=== PATIENT | female | born 1990 | race Hispanic/Latino ===

== ENCOUNTER 2021-05-12 07:34 | Day surgery (SDC) | payer BC ==
[2021-05-12 08:22] LABS: Absolute Lymphocytes (CBC) 2.2 K/uL (0.7-4.9); Hematocrit 34.5 % (36.0-45.0); Lymphocytes % 35.5 % (15.3-44.8); MPV 8.7 fL (7.6-11.3); RBC Red Blood Cell Count 4.99 M/uL (3.86-4.86)
[2021-05-12 08:26] LABS: Specific Gravity 1.025 (1.005-1.030)
[2021-05-12 08:41] LABS: ALT/SGPT 32 U/L (12-78); AST/SGOT 14 U/L (15-37); Alkaline Phosphatase 97 U/L (45-117); Amylase 59 U/L (25-115); BUN Blood Urea Nitrogen 13 mg/dL (7-18); Bicarbonate 26 mmol/L (21-32); Bilirubin Direct < 0.1 mg/dL (0-0.2); Bilirubin Total 0.4 mg/dL (0.2-1.0); Glucose Level 105 mg/dL (74-106); Lipase 107 U/L (73-393); Potassium 3.9 mmol/L (3.5-5.1); Protein, Total 8.1 g/dL (6.4-8.2); Sodium Level 142 mmol/L (136-145)
[2021-05-12] MEDS ORDERED: Ringers Lactate 1,000 ML IV ONE (08:51)
[2021-05-12] MEDS ORDERED: CEFAZOLIN/NS 1gm 1 GM/50 ML BAG ONE (08:53)
[2021-05-12] MEDS ORDERED: LIDOCAINE 1% MPF 5 ML VIAL ONE (10:48)
[2021-05-12] MEDS ORDERED: propofoL 200 MG/20 ML VIAL IV ONE (10:48)
[2021-05-12] MEDS ORDERED: FENTANYL CITR 100 MCG/2 ML ONE ×2 (10:48→11:41)
[2021-05-12] MEDS ORDERED: MIDAZOLAM HCL 2 MG/2 ML INJ ONE (10:48)
[2021-05-12] MEDS ORDERED: ROCURONIUM 50 MG/5 ML VIAL IV ONE (10:48)
--- NOTE | 2021-05-12 11:28 | P.BOP ---
Preoperative diagnosis: symptomatic cholelithiasis, acute cholecystitis, RUQ abd pain Postoperative diagnosis: same Primary procedure: Laparoscopic cholecystectomy Origination Specialist: Evelyn Rosales) Estimated blood loss: <10cc Specimen: gb Findings: as above Anesthesia: General Complications: None Transferred to: Recovery Room Condition: Good
[2021-05-12] MEDS ORDERED: dexAMETHasone 10 MG/ML VIAL ONE (11:30)
[2021-05-12] MEDS ORDERED: GLYCOPYRROLATE 0.2 MG/ML SYR ONE (11:30)
[2021-05-12] MEDS ORDERED: KETOROLAC 30 MG/ML INJ ONE (11:31)
[2021-05-12] MEDS ORDERED: NEOSTIGMINE 1 MG/ML -5 ML ONE (11:41)
[2021-05-12] MEDS ORDERED: ONDANSETRON 4 MG/2 ML VIAL ONE ×2 (11:41→12:20)
[2021-05-12 11:49] VITALS: O2SAT 100
[2021-05-12] MEDS ORDERED: Mastisol Adhesive Liq ONE (11:49)
--- NOTE | 2021-05-12 12:12 | OP ---
Date of Procedure: 05/12/2021 Surgeon: Roberto Smith MD Oven Builder: ANANT Pathak. Preoperative Diagnoses: Symptomatic cholelithiasis, acute cholecystitis, right upper quadrant abdomi nal pain. Postoperative Diagnoses: Symptomatic cholelithiasis, acute cholecystitis, right upper quadrant abdom inal pain. Procedure: Laparoscopic cholecystectomy. Estimated Blood Loss: Less than 10 mL. Specimen: Gallbladder. Finding: As above. Anesthesia: General plus local. Complications: None. Indication: This is the case of a 30-year-old patient, who comes to us with above diagnosis. Fully explained the benefits, alternatives, and risks of laparoscopic possible open cholecystectomy, which include, but not limited to infection, bleeding, damage to adjacent structures, anesthesia complicati on, choledocholithiasis, bile leak, pancreatitis, MT, and even . She also understands this may not relieve any symptoms. She might need more than one surgical intervention. She understood, min d a consent. Procedure In Detail: The patient was brought to the operating room, placed in supine position. Anes thesia was done without complication. Abdominal area was prepped and draped in usual sterile fashion . Marcaine 0.5% was injected for local anesthetic followed by sharp incision of the skin in the infr aumbilical region. Incision was carried down to fascia, which was opened under direct vision. Perit oneum was encountered, opened under direct vision. Vicryl #1 placed inside the fascia. Jose Miguel troca r was carefully introduced. Pneumoperitoneum was obtained. I placed 3 more trocars under direct vis ualization in the right upper quadrant, 5 mm each one of them. This allowed me to put a grasper in t he fundus of the gallbladder, another grasper in the infundibulum retracting the gallbladder in the i nferolateral fashion, exposing the triangle of Calot, and obtaining critical view. Cystic duct and c ystic artery were clearly isolated, freed circumferentially and a connection between those and the ga llbladder were clearly identified. I proceeded to ligate those by using at least 3 clips, proximal 1 clip distal, ligation in middle. Same was done with the cystic artery. No bile leak. No bleeding. The gallbladder was removed from liver using Bovie cauterizer and removed from abdominal cavity usi ng EndoCatch through the umbilical incision. The area was inspected once again. Clips were intact. No bile leak. No bleeding. At that moment, I proceeded to remove the trocars under direct vision. Deflated the pneumoperitoneum. Closed the fascia with #1 Vicryl. Irrigated the subcutaneous tissue , closed that with 3-0 chromic and skin in subcuticular fashion with 3-0 chromic and Steri-Strips on top. Sponge count and instrument counts correct. The patient tolerated the procedure well. The [facility] ient was sent to recovery in stable condition. YOAV/KEVIN Voice ID: [id number] Report ID: [id number]
--- NOTE | 2021-05-12 12:12 | DS ---
Diagnoses: Symptomatic cholelithiasis, acute cholecystitis, right upper quadrant abdominal pain. Procedure: Laparoscopic cholecystectomy. Disposition: Home. Activity: As tolerated. No heavy lifting. Plan: Follow up in my office in 1 week. Call for appointment at [phone]. Keep area dry for 48 greta rs, then may shower. Keep Steri-Strips intact. Medications: Include Tylenol No.3 q.4 hours p.r.n. pain, Zofran 4 q.6 hours p.r.n. nausea, and Bactr im DS p.o. b.i.d. YOAV/KEVIN Voice ID: [id number] Report ID: [id number]
[2021-05-12] MEDS ORDERED: HYDROMORPHONE HCL 1 MG/ML INJ ONE (12:20)
[2021-05-12 13:18] LABS: Anisocytosis SLIGHT; Blood Morphology Comment NOTED (NOT SEEN); Hypochromasia 1+; Platelet Estimate ADEQ; White Blood Cell Scan OK (OK)
[2021-05-12] MEDS ORDERED: HYDROCODONE/APAP 7.5/325 MG TAB ONE (13:18)
[2021-05-12] MEDS ORDERED: ONDANSETRON 4 MG (ODT) TAB ONE (13:23)
[2021-05-12 14:06] VITALS: BP 128/90; TEMP 98
== END 2021-05-12 13:30 | disposition home or self-care (01) ==
LOC: OR 07:34
PROVIDERS: ATTEND Surgery
PROC: 0FT44ZZ Resection of Gallbladder, Percutaneous Endoscopic Approach (ICD-10-PCS; principal; 2021-05-12 10:15)
DX: K80.10 Calculus of gallbladder with chronic cholecystitis without obstruction (principal)
CPT/HCPCS: 85025; 80048; 36415; 82150; 81025; 80076; 88304; 83690; 47562; J2704; J2250; J3010 ×2; J1100; J1170; J2710; J0690; J7120; J2405 ×2